=== PATIENT | female | born 1955 | race Caucasian/White ===

== ENCOUNTER 2016-05-25 10:59 | Emergency (ER) | payer MEDICAID ==
[2016-05-25 11:38] VITALS: BP 141/75; PULSE 92; RESP 17; TEMP 97.9; O2SAT 96
--- NOTE | 2016-05-25 13:21 | UCPHY ---
H & P Time Seen by Provider: 05/25/16 12:58 Patient Type: Established HPI/ROS: 60-year-old female presents complaining of sore throat and earache as well as cough nasal congestion and body aches. Review of systems As per HPI-nasal congestion, earache General positive fever positive chills no weakness HEENT no eye pain no eye discharge. No eye redness, positive sore throat Respiratory no cough, no shortness of breath Cardiac no chest pain, no peripheral edema GI no abdominal pain, no diarrhea, no constipation, no nausea, no vomiting no flank pain, no hematuria, no dysuria Musculoskeletal positive myalgias, no joint pain Heme no easy bruising, no easy bleeding Endo no polyuria, no polydipsia Skin no rashes, no pruritus Neuro no syncope, no dizziness, no headaches Psych is no suicidal ideation, no homicidal ideation Past Medical/Surgical History: Prior history of sinusitis Social History: Alcohol socially, denies drug use Smoking Status: Former smoker Physical Exam: 60-year-old female Alert and oriented nontoxic appearance, no acute distress afebrile Atraumatic normocephalic Extraocular muscles intact, anicteric Nares mild yellowish discharge, nasal turbinates erythematous and swollen Bilateral tympanic membranes with erythema Oropharynx mild erythema no tonsillar swelling no exudate no uvular deviation, tolerating own secretions Neck supple no lymphadenopathy Lungs clear to auscultation bilaterally Heart regular rate and rhythm Abdomen normoactive bowel sounds soft nontender Extremities no cyanosis clubbing or edema Skin no rash Constitutional: Initial Vital Signs Temperature (C) 36.6 C 05/25/16 11:36 Heart Rate 92 05/25/16 11:36 Respiratory Rate 17 05/25/16 11:36 Blood Pressure 141/75 H 05/25/16 11:36 O2 Sat (%) 96 05/25/16 11:36 O2 Delivery Mode Room Air Allergies/Adverse Reactions: Penicillins Allergy (Severe, Verified 05/25/16 11:34) Rash Sulfa (Sulfonamide Antibiotics) Allergy (Severe, Verified 05/25/16 11:34) Rash Home Medications: Medication Instructions Recorded Fluticasone Nasal [Flonase Nasal 2 sprays NASAL DAILY #1 mdi 05/25/16 [place]] levOFLOXACIN [Levaquin] 500 mg PO DAILY #14 tablet 01/28/17 Medical Decision Making ED Course/Re-evaluation: Patient seen and evaluated for cough cold earache sore throat fevers chills myalgias Physical exam significant for maxillary sinus tenderness as well as tympanic membrane erythema and fullness bilaterally Impression Otitis media, sinusitis Plan Fluticasone Levofloxacin Follow-up PCP Departure - Departure Disposition: Home, Routine, Self-Care Clinical Impression: Otitis media, Acute maxillary sinusitis Condition: Good Instructions: Otitis Media (ED), Sinusitis (ED) Additional Instructions: Drink plenty of liquids to thin year secretions, use a decongestant also Referrals: Martita Joshi MD [Primary Care Provider] - As per Instructions Prescriptions: Fluticasone Nasal [Flonase Nasal [place]] 2 sprays NASAL DAILY #1 mdi levOFLOXACIN [Levaquin] 500 mg PO DAILY #14 tablet - PQRS PQRS Measurement: 134: Depression screening and followup, PRIME MD-PHQ2 (12 years and older) Over the last 2 weeks, how often have you been bothered by any of the following problems? 1. Feeling down, depressed, or hopeless? 2. Little interest or pleasure in doing things? Patient answered no to both 1 and 2 130: Documentation of medications. Reviewed all patient medications, doses, route and frequency. 226: Do you smoke? No. 47: 65 and older: Advanced care planning. Patient designates surrogate decision maker as spouse.. [Patient has advanced directive.] 51: 18 years old and older with diagnosis of COPD, spirometry performance. [Patient has no history of COPD 52: 18 years old and older with COPD and symptoms of COPD or FEV1<60% predicted prescribed a B Agonist. [Spirometry not performed; equipment not available.]
== END 2016-05-25 13:41 | disposition home or self-care (01) ==
LOC: CED 10:59
DX: H66.90 Otitis media, unspecified, unspecified ear (principal); J01.90 Acute sinusitis, unspecified; Z87.891 Personal history of nicotine dependence
CPT/HCPCS: 87400-PO; G0463-PO

== ENCOUNTER → 2017-02-04 | Outpatient (CLI) | payer MEDICAID | LOC: CIMAGING 08:07 | PROVIDERS: ATTEND Family Medicine | DX: Z12.31 Encounter for screening mammogram for malignant neoplasm of breast (principal) | CPT/HCPCS: G0202 ==

== ENCOUNTER 2017-05-24 06:49 | Emergency (ER) | payer MEDICAID ==
[2017-05-24 06:58] VITALS: BP 137/89; PULSE 69; RESP 16; TEMP 98.2; O2SAT 97
[2017-05-24] MEDS ORDERED: ALBUTEROL 3 ML DEYVIAL IH ONE (07:10)
[2017-05-24] MEDS ORDERED: predniSONE 20 MG TAB PO ONE (07:10)
--- NOTE | 2017-05-24 07:13 | EDPHY ---
H & P Time Seen by Provider: 05/24/17 07:00 HPI/ROS: CHIEF COMPLAINT: I think I might have the flu HISTORY OF PRESENT ILLNESS: This is a 61-year-old female with history of asthma , scheduled to have surgery on her knee meniscus in 3 days, who presents with concerns regarding influenza. Patient noted that she has had some nasal congestion, nasal drainage, mild headache, for 1 1/2 days and began feeling short of breath and needing to use her albuterol meter dose inhaler yesterday. Patient has had some chills. No documented fever. Her asthma is mild, only induce with exertion or with upper respiratory infections. She uses a albuterol meter dose inhaler. She also has seasonal allergies. Patient denies any chest pain, palpitations, vomiting, or diarrhea. She has had mild nausea and mild shortness of breath. No urinary complaints. No lightheadedness. Some tearing and conjunctival irritation. Occasional cough. REVIEW OF SYSTEMS: Aside from elements discussed in the HPI, a comprehensive 10-point review of systems was reviewed and is negative. PAST MEDICAL HISTORY: Asthma, polycystic ovaries. SOCIAL HISTORY: Nonsmoker. Increased stress recently. VITAL SIGNS: see nurse's notes. GENERAL: Well-developed, well-nourished, in no acute distress. HEENT: Atraumatic Eyes: PERRL, EOMI, no conjunctival injection. Ears: TM clear bilaterally. Nose: No discharge. Mouth: moist mucous membranes. Pharynx: no erythema, no exudates, no swelling, no abscess. NECK: Supple, no adenopathy, no meningismus, no tenderness. Negative Kernig's and Brudzinski's. LUNGS: Expiratory wheezes at the bases. No rhonchi. Moving good air. CARDIAC: Regular rate and rhythm, no rubs, murmurs or gallops. ABDOMEN: Soft, nontender, bowel sounds normal. BACK: No CVA tenderness. EXTREMITIES: Normal, no edema, FROM. NEURO: Alert and oriented, grossly nonfocal. SKIN: Warm and dry, no rash. PSYCHIATRIC: Normal mentation, no agitation. Smoking Status: Former smoker Constitutional: Initial Vital Signs Temperature (C) 36.8 C 05/24/17 06:54 Heart Rate 69 05/24/17 06:54 Respiratory Rate 16 05/24/17 06:54 Blood Pressure 137/89 H 05/24/17 06:54 O2 Sat (%) 97 05/24/17 06:54 O2 Delivery Mode Room Air Allergies/Adverse Reactions: Penicillins Allergy (Severe, Verified 05/24/17 06:58) Rash Sulfa (Sulfonamide Antibiotics) Allergy (Severe, Verified 05/24/17 06:58) Rash Home Medications: Medication Instructions Recorded Albuterol PRN 05/24/17 predniSONE [prednisone 10mg (RX)] 40 mg PO DAILY 2 Days tab 05/24/17 Medical Decision Making ED Course/Re-evaluation: Rapid influenza was negative. Patient received an albuterol neb. She was re- examined following this with resolution of the wheezes. She is moving good air. She was given dose of prednisone in the emergency department. We will discharge her with a short prednisone burst and encourage her to use her meter dose inhaler up to 4 times a day. Influenza PCR is pending at the time of this dictation. Differential Diagnosis: Differential diagnosis of the patient's symptom complex was considered including but not limited to viral upper respiratory infection, sinusitis, bronchitis, bronchospasm, and influenza. - Data Points Laboratory Results: 05/24/17 05/24/17 07:05 07:05 Nasal Influenza A PCR Pending Nasal Influenza B PCR Pending Influenza A,B Rapid NEGATIVE FOR FLU (NEGATIVE) Medications Given: Discontinued Medications Albuterol (Proventil Neb) 3 ml IH EDNOW ONE Stop: 05/24/17 07:11 Last Admin: 05/24/17 07:17 Dose: 3 ml Prednisone (Prednisone) 40 mg PO EDNOW ONE Stop: 05/24/17 07:11 Last Admin: 05/24/17 07:16 Dose: 40 mg Departure - Departure Disposition: Home, Routine, Self-Care Clinical Impression: Upper respiratory infection Qualifiers: URI type: unspecified viral URI Qualified Code(s): J06.9 - Acute upper respiratory infection, unspecified Condition: Good Instructions: Upper Respiratory Infection (ED), Bronchospasm (ED) Additional Instructions: Please begin using your meter dose inhaler more frequently. I was suggest at least 4 times a day. If needed for severe cough, you may use 2-4 puffs every 3-4 hours. However, if you feel you need to use your inhaler this frequently for a prolonged period of time, please return to the emergency department. Please take Tylenol for any headaches. Please take the prednisone as directed. Use a decongestant and Flonase nasal spray to help with your upper respiratory congestion symptoms. You may call the emergency department at [phone] later this afternoon for the results of your PCR influenza swab. (the rapid influenza is negative) Referrals: Felicitas Cotton DO [Primary Care Provider] - As per Instructions Prescriptions: predniSONE [prednisone 10mg (RX)] 40 mg PO DAILY 2 Days tab
== END 2017-05-24 07:35 | disposition home or self-care (01) ==
LOC: CED 06:49
DX: J06.9 Acute upper respiratory infection, unspecified (principal); J45.909 Unspecified asthma, uncomplicated; Z87.891 Personal history of nicotine dependence
CPT/HCPCS: 87400-PO; J7512; J7613

== ENCOUNTER → 2018-02-05 | Outpatient (CLI) | payer MEDICAID | LOC: CIMAGING 08:18 | PROVIDERS: ATTEND Family Medicine | DX: Z12.31 Encounter for screening mammogram for malignant neoplasm of breast (principal) ==